=== PATIENT | female | born 1985 | race African-American/Black ===

== ENCOUNTER 2016-12-31 23:55 | Emergency (ER) | payer MEDICAID ==
[2017-01-01] MEDS ORDERED: NORMAL SALINE 1000 ML 1,000 ML IV ONE (02:00)
--- NOTE | 2017-01-01 02:01 | ER Document Report ---
ED General - General Chief Complaint: L leg numbness, Lightheadedness Stated Complaint: LIGHT HEADED,FOOT NUMBNESS Notes: Patient is a 31-year-old female that comes emergency department with 2 stated complaints. She states her first complaint is that her left lower leg over the frontal leg had a tingling and puffy sensation that started while she was walking/working earlier, she states shortly after that she had a lightheaded feeling and felt unsteady on her feet, she denies passing out, she denies nausea , chest pain, shortness of breath. She denies any fever or swelling. She denies any daily medications or known medical problems. TRAVEL OUTSIDE OF THE [place] IN LAST 30 DAYS: No - Related Data Allergies/Adverse Reactions: No Known Allergies Allergy (Verified 05/02/15 20:10) Past Medical History - General Information source: Patient - Social History Smoking Status: Never Smoker Drug Abuse: None Lives with: Family Family History: Reviewed & Not Pertinent, DM - Past Medical History Cardiac Medical History: Denies: Hx Coronary Artery Disease, Hx Heart Attack, Hx Hypertension Pulmonary Medical History: Denies: Hx Asthma, Hx Bronchitis, Hx COPD, Hx Pneumonia Neurological Medical History: Denies: Hx Cerebrovascular Accident, Hx Seizures Renal/ Medical History: Denies: Hx Peritoneal Dialysis Musculoskeltal Medical History: Denies Hx Arthritis Past Surgical History: Reports: Hx Tonsillectomy - Immunizations Hx Diphtheria, Pertussis, Tetanus Vaccination: Yes Hx Pneumococcal Vaccination: 07/02/14 Review of Systems - Review of Systems Constitutional: See HPI EENT: No symptoms reported Cardiovascular: See HPI Respiratory: No symptoms reported Gastrointestinal: No symptoms reported Genitourinary: No symptoms reported Female Genitourinary: No symptoms reported Musculoskeletal: See HPI Skin: No symptoms reported Hematologic/Lymphatic: No symptoms reported Neurological/Psychological: See HPI Physical Exam - Vital signs Vitals: Temp Pulse Resp BP Pulse Ox 98.0 F 74 16 137/87 H 100 01/01/17 00:11 01/01/17 00:11 01/01/17 00:11 01/01/17 00:11 01/01/17 00:11 Interpretation: Normal - General General appearance: Appears well, Alert In distress: None - Alert and well-appearing - HEENT Head: Normocephalic, Atraumatic Eyes: Normal Pupils: PERRL - Respiratory Respiratory status: No respiratory distress Chest status: Nontender Breath sounds: Normal Chest palpation: Normal - Cardiovascular Rhythm: Regular Heart sounds: Normal auscultation Murmur: No - Abdominal Inspection: Normal Distension: No distension Bowel sounds: Normal Tenderness: Nontender Organomegaly: No organomegaly - Back Back: Normal, Nontender - Extremities General upper extremity: Normal inspection, Nontender, Normal color, Normal ROM , Normal temperature General lower extremity: Normal inspection, Nontender - I do not appreciate any swelling, tenderness, erythema, or painful palpation over the entire leg bilaterally. Normal distal neurovascular exam., Normal strength, Normal temperature. No: Joo's sign - Neurological Neuro grossly intact: Yes Cognition: Normal Orientation: AAOx4 [place] Coma Scale Eye Opening: Spontaneous Seng Coma Scale Verbal: Oriented [place] Coma Scale Motor: Obeys Commands [place] Coma Scale Total: 15 Speech: Normal Motor strength normal: LUE, RUE, LLE, RLE Sensory: Normal - Psychological Associated symptoms: Normal affect, Normal mood - Skin Skin Temperature: Warm Skin Moisture: Dry Skin Color: Normal Course - Re-evaluation Re-evalutation: Patient alert, well appearing, has dry mucous membranes, has a completely normal lower extremity and neurological examination, unremarkable vital signs. Patient stating she currently feels a little bit lightheaded but otherwise has no complaints. CBC, chemistry unremarkable, hCG negative. Patient given IV fluids, afterwards patient states she feels much better, has no complaints. Vague presentation, well-appearing patient, nonspecific workup. Patient discharged follow-up with primary care, discussed return precautions including passing out, swelling of the lower extremity, etc. Patient states understanding and agreement. - Vital Signs Vital signs: Temp Pulse Resp BP Pulse Ox 97.7 F 68 14 125/85 96 01/01/17 03:10 01/01/17 03:10 01/01/17 03:10 01/01/17 03:10 01/01/17 03:10 - Laboratory Result Diagrams: 01/01/17 02:21 01/01/17 02:21 Laboratory results interpreted by me: 01/01/17 02:21 RBC 3.54 L Hgb 10.7 L Hct 31.4 L Discharge - Discharge Clinical Impression: Lightheaded, Leg paresthesia Condition: Stable Disposition: HOME, SELF-CARE Additional Instructions: No abnormality is seen on your workup and examination other than evidence of dehydration. Continue to rehydrate, rest, follow-up with primary care. Return to the emergency department for any returned or new concerning symptoms. Forms: Return to Work Referrals: LUKAS HERRERA NP [Primary Care Provider] - Follow up as needed
[2017-01-01 02:31] LABS: ABSOLUTE EOSINOPHILS # (AUTO) 0.2 10^3/uL (0.0-0.6); ABSOLUTE LYMPHOCYTES (AUTO) 1.9 10^3/uL (0.5-4.7); ABSOLUTE MONOCYTES (AUTO) 0.5 10^3/uL (0.1-1.4); BASOPHILS % (AUTO) 0.4 % (0-2); EOSINOPHILS % (AUTO) 3.3 % (0-6); HEMATOCRIT 31.4 % (36.0-47.0); HEMOGLOBIN 10.7 g/dL (12.0-15.5); HGB HCT DIFFERENCE 0.7; MEAN CORPUSCULAR HEMOGLOBIN 30.2 pg (27.0-33.4); MEAN CORPUSCULAR VOLUME 89 fl (80-97); MONOCYTES % (AUTO) 9.1 % (3-13); RED BLOOD COUNT 3.54 10^6/uL (3.72-5.28); RED CELL DISTRIBUTION WIDTH 13.2 % (11.5-14.0); SEGMENTED NEUTROPHILS % (AUTO) 53.2 % (42-78); WHITE BLOOD COUNT 5.6 10^3/uL (4.0-10.5)
[2017-01-01 02:45] LABS: ANION GAP 10 (5-19); BLOOD UREA NITROGEN 17 mg/dL (7-20); CALCIUM 9.2 mg/dL (8.4-10.2); CARBON DIOXIDE 26 mmol/L (22-30); CHLORIDE 106 mmol/L (98-107); CREATININE RESULT 0.64 mg/dL (0.52-1.25); GLUCOSE 90 mg/dL (75-110); SODIUM 142.4 mmol/L (137-145)
[2017-01-01 03:11] VITALS: BP 125/85
== END 2017-01-01 03:11 | disposition home or self-care (01) ==
LOC: ER 23:55
DX: R20.0 Anesthesia of skin (principal)
CPT/HCPCS: 99284; 36415; 84703; 85025; 80048; J7030

== ENCOUNTER 2017-09-12 15:33 | Emergency (ER) | payer BC ==
--- NOTE | 2017-09-12 15:45 | ER Document Report ---
ED General - General Chief Complaint: Cough Stated Complaint: COLD SYMPTOMS Time Seen by Provider: 09/12/17 15:44 Mode of Arrival: Ambulatory Information source: Patient Notes: Patient is a 32 year old female who presents with right upper back pain with associated nausea that started earlier this moring. She states since then the pain has improved after taking tylenol and she is feeling better. She also endorses a "burning sensation" across her chest that is intermittent. She feels this symptoms are due to her body "reacting after having a dream that my son this morning." She states initially she was panicking and this is when her symptoms started. She is now feeling better and her symptoms have all improved. She reports she did take her temperature and it was 100.4F but patient was afebrile in triage. She denies any cough, sore throat, neck pain/stiffness, headache, SOB, abdominal pain, vomiting or diarrhea. Otherwise she is doing well. TRAVEL OUTSIDE OF THE [place] IN LAST 30 DAYS: No - Related Data Allergies/Adverse Reactions: No Known Allergies Allergy (Verified 09/12/17 15:34) Past Medical History - General Information source: Patient - Social History Smoking Status: Unknown if Ever Smoked Family History: Reviewed & Not Pertinent, DM - Past Medical History Cardiac Medical History: Denies: Hx Coronary Artery Disease, Hx Heart Attack, Hx Hypertension Pulmonary Medical History: Denies: Hx Asthma, Hx Bronchitis, Hx COPD, Hx Pneumonia Neurological Medical History: Denies: Hx Cerebrovascular Accident, Hx Seizures Renal/ Medical History: Denies: Hx Peritoneal Dialysis Musculoskeltal Medical History: Denies Hx Arthritis Past Surgical History: Reports: Hx Tonsillectomy - Immunizations Hx Diphtheria, Pertussis, Tetanus Vaccination: Yes Hx Pneumococcal Vaccination: 07/02/14 Review of Systems - Review of Systems Constitutional: See HPI EENT: See HPI Cardiovascular: No symptoms reported Respiratory: See HPI Gastrointestinal: No symptoms reported Genitourinary: No symptoms reported Female Genitourinary: No symptoms reported Musculoskeletal: No symptoms reported Skin: No symptoms reported Hematologic/Lymphatic: No symptoms reported Neurological/Psychological: No symptoms reported Physical Exam - Vital signs Vitals: Temp Pulse Resp BP Pulse Ox 98.6 F 73 16 132/79 H 99 09/12/17 15:38 09/12/17 15:38 09/12/17 15:38 09/12/17 15:38 09/12/17 15:38 - Notes Notes: PHYSICAL EXAM: CONSTITUTIONAL: Alert and oriented, well-appearing and in no acute distress. Sitting upright on exam bed, speaking in full sentences without difficulty. HENT: Normocephalic, atraumatic. Ear canals without erythema or foreign body, TMs pearly rosado with good bony landmarks. Nares clear without erythema, septal hematoma or deviation, airway patent. Oropharynx clear without erythema, tonsilar exudate or malocclusion. Trachea midline. Uvula midline. Moist mucous membranes. EYES: Pupils equal round and reactive to light, EOM intact. Sclera anicteric, conjunctiva are normal. No entrapment. NECK: supple without lymphadenopathy. No midline tenderness or paraspinous muscle spasms. No step-offs or deformities. ROM intact. HEART: Regular rate and rhythm without murmurs. LUNGS: CTAB and equal. No wheezes, rales or rhonchi. GI: Normactive bowel sounds. Nontender, non-distended. No organomegaly. no CVAT. Negative Balderas sign, no McBurney's point tenderness. No rebound or guarding. BACK: no midline tenderness, TTP to rhomboids and latt dorsi beneath right scapula with muscle spasms, no paraspinous spasm, 5+/5 strengths, DTRs 2+, SLR - . EXTREMITIES: Normal range of motion, no pitting edema. No cyanosis. Cap Refill < 3 seconds. NEURO: Cranial nerves grossly intact. Normal sensory/motor exams. PSYCH: Normal mood, normal affect. SKIN: Warm and dry. Normal turgor. No rashes or lesions noted. Course - Re-evaluation Re-evalutation: 09/12/17 15:45 Patient seen and examined. Non-toxic in appearance, no respiratory distress, hemodynamically stable, afebrile. Speaking in full sentences without difficulty. Lungs CTAB. Denies any chest pain/SOB at this time. Exam consistent with muscle spasms. Did obtain flu test which was negative. Low suspicion at this time for ACS, PE, pneumonia, meningitis, sepsis, intra-abdominal infection or any other emergent condition at this time. Discussed this with patient and will give script for muscle relaxer. At this time, will discharge with return precautions and follow-up recommendations. Verbal discharge instructions given at the bedside and opportunity for questions given. Medication warnings reviewed. Patient is in agreement with this plan and has verbalized understanding of return precautions and the need for primary care follow-up in the next 24-72 hours. - Vital Signs Vital signs: Temp Pulse Resp BP Pulse Ox 98.6 F 73 16 132/79 H 99 09/12/17 15:38 09/12/17 15:38 09/12/17 15:38 09/12/17 15:38 09/12/17 15:38 Discharge - Discharge Clinical Impression: Spasm of thoracic back muscle Condition: Stable Disposition: HOME, SELF-CARE Instructions: Myalagia (Muscle Pain) (OM), Muscle Relaxers (OM) Additional Instructions: Follow-Up Care Although no definite follow-up visit has been scheduled for you, you should return if there is unexpected worsening or a significant change in your symptoms. Prescriptions: Methocarbamol [Robaxin 500 mg Tablet] 500 mg PO TID #20 tablet Forms: Elevated Blood Pressure, Return to Work
[2017-09-12 17:05] VITALS: BP 139/85
== END 2017-09-12 17:04 | disposition home or self-care (01) ==
LOC: ER 15:33
DX: M62.830 Muscle spasm of back (principal); M54.89 Other dorsalgia; R11.0 Nausea; R20.8 Other disturbances of skin sensation
CPT/HCPCS: 87804; 99283

== ENCOUNTER → 2018-04-17 | Outpatient (CLI) | payer BC ==
--- NOTE | 2018-04-17 14:36 | WOMENS IMAGING REPORT ---
EXAM DESCRIPTION: U/S BREAST UNILAT LIMITED; EMPLOYEE COMPLETED DATE/TIME: 04/17/2018 2:09 pm REASON FOR STUDY: MASTODYNIA N64.4 MASTODYNIA COMPARISON: None. TECHNIQUE: Real-time and static grayscale imaging performed of the left breast targeted to the area of clinical/mammographic concern. Selected color Doppler images recorded. LIMITATIONS: None. FINDINGS: MASS: No mass identified. Normal glandular tissue. OTHER: No other significant finding. IMPRESSION: No suspicious findings detected by ultrasound. BIRAD: 1 Negative. RECOMMENDATION: RECOMMENDED FOLLOW-UP: Follow-up as clinically indicated. COMMENT: The [employer] (ACR) has developed recommendations for screening MRI of the breasts in certain patient populations, to be used in conjunction with mammography. Breast MRI s urveillance may be appropriate for women with more than 20% lifetime risk of developing breast cancer as determined by genetic testing, significant family history of the disease, or history of mantle r adiation for Hodgkins Disease. ACR Practice Guidelines 2008. TECHNICAL DOCUMENTATION: JOB ID: [id number] [employer]- All Rights Reserved Reading location - IP/workstation name: [facility]
--- NOTE | 2018-04-17 14:36 | WOMENS IMAGING REPORT ---
EXAM DESCRIPTION: U/S BREAST UNILAT LIMITED; EMPLOYEE COMPLETED DATE/TIME: 04/17/2018 2:09 pm REASON FOR STUDY: MASTODYNIA N64.4 MASTODYNIA COMPARISON: None. TECHNIQUE: Real-time and static grayscale imaging performed of the left breast targeted to the area of clinical/mammographic concern. Selected color Doppler images recorded. LIMITATIONS: None. FINDINGS: MASS: No mass identified. Normal glandular tissue. OTHER: No other significant finding. IMPRESSION: No suspicious findings detected by ultrasound. BIRAD: 1 Negative. RECOMMENDATION: RECOMMENDED FOLLOW-UP: Follow-up as clinically indicated. COMMENT: The [employer] (ACR) has developed recommendations for screening MRI of the breasts in certain patient populations, to be used in conjunction with mammography. Breast MRI s urveillance may be appropriate for women with more than 20% lifetime risk of developing breast cancer as determined by genetic testing, significant family history of the disease, or history of mantle r adiation for Hodgkins Disease. ACR Practice Guidelines 2008. TECHNICAL DOCUMENTATION: JOB ID: [id number] [employer]- All Rights Reserved Reading location - IP/workstation name: [email or web address]
== END ==
LOC: WI 13:25
PROVIDERS: ATTEND Family Medicine
DX: N64.4 Mastodynia (principal)
CPT/HCPCS: 76642

== ENCOUNTER → 2020-06-17 | Outpatient (CLI) | payer BC ==
[2020-06-17 13:32] VITALS: BP 139/94
--- NOTE | 2020-06-17 13:32 | ER RDC ASSESSMENT REPORT ---
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 - Symptoms Subjective Fever(Finley feverish): No Chills: No Muscule Aches: No Runny Nose: Yes Sore Throat: Yes Cough (New or worsening chronic cough): Yes Shortness of breath: No Nausea or Vomiting: No Headache: No Abdominal Pain: No Diarrhea(3 or more loose stools in last 24 hours): No - Do you have any of the following Chronic lung disease: Asthma or emphysema or COPD: No Cystic Fibrosis: No Diabetes: No High Blood Pressure: No Cardiovascular Disease: No Chronic Kidney Disease: No Chronic Liver Disease: No Chronic blood disorder like Sickle Cell Disease: No Weak immune system due to disease or medication: No Neurologic condition that limits movement: No Developmental delay - Moderate to Severe: No Recent (within past 2 weeks) or current : No - Objective Temperature: 97.8 F Pulse Rate: 73 Respiratory Rate: 18 Blood Pressure: 139/94 O2 Sat by Pulse Oximetry: 99 Objective: Given above, testing performed: flu, strep, covid Disposition: Home; Selfcare General - General Stated Complaint: congestion, fatigue Mode of Arrival: Ambulatory Information source: Patient - HPI Notes: 34-year-old female presents to [facility] clinic for COVID-19 testing. Patient is employed over [employer] on the second floor. She denies any known contact with COVID positive individual. Onset of symptoms 06/14/2020. She is reporting fatigue, congestion, sore throat, runny nose, and intermittent cough. Denies any fever, chills, myalgia, shortness of breath, nausea or vomiting, headache abdominal pain or diarrhea. - Related Data Allergies/Adverse Reactions: No Known Allergies Allergy (Verified 09/12/17 15:34) Past Medical History - General Information source: Patient - Social History Smoking Status: Current Every Day Smoker Cigarette use (# per day): Yes - 5 Family History: Reviewed & Not Pertinent, DM - Past Medical History Cardiac Medical History: Reports: None Denies: Hx Coronary Artery Disease, Hx Heart Attack, Hx Hypertension Pulmonary Medical History: Reports: None Denies: Hx Asthma, Hx Bronchitis, Hx COPD, Hx Pneumonia EENT Medical History: Reports: None Neurological Medical History: Reports: None. Denies: Hx Cerebrovascular Accident, Hx Seizures Endocrine Medical History: Reports: None Renal/ Medical History: Reports: None. Denies: Hx Peritoneal Dialysis Malignancy Medical History: Reports: None GI Medical History: Reports: None Musculoskeletal Medical History: Reports None, Denies Hx Arthritis Skin Medical History: Reports None Psychiatric Medical History: Reports: None Traumatic Medical History: Reports: None Infectious Medical History: Reports: None Past Surgical History: Reports: Hx Tonsillectomy Physical Exam - General General appearance: Appears well, Alert In distress: None Notes: PHYSICAL EXAMINATION: GENERAL: Well-appearing and in no acute distress. HEAD: Atraumatic, normocephalic. EYES: sclera anicteric, conjunctiva are normal. ENT: nares patent. Moist mucous membranes. NECK: Normal range of motion, supple without lymphadenopathy. LUNGS: No increased work of breathing. Lung sounds CTAB and equal. No wheezes rales or rhonchi. HEART: Regular rate and rhythm without murmurs. ABDOMEN: Soft, nontender, normal bowel sounds, no guarding. EXTREMITIES: Normal range of motion, no pitting edema. No cyanosis. NEUROLOGICAL: A&O x 3. Normal speech. PSYCH: Normal mood, normal affect. SKIN: Warm, Dry, normal turgor, no rashes or lesions noted Patient Education/Counseling Counseling/Education: Patient presents with symptoms associated with possible Covid 19 infection. Patient does not have emergency worrying symptoms such as difficulty breathing, shortness of breath, chest pain, pressure, confusion or cyanosis. Patient appears suitable for discharge as vital signs are stable and patient is nontoxic in appearance. Good return precautions have been discussed with patient, patient verbalized understanding and is agreeable with discharge plan of care at this time. Guidance for worsening S/SX: As a person under investigation for Covid 19, the [place] department of Health and Human Services, division of public health advises you to adhere to the following guidance until your test results are reported to you. If your test result is positive, you will receive additional information from your provider and your local health department at that time. Remain at home until you are cleared by the health provider or public health authorities. Keep a log of visitors to your home, notify any visitors to your home of your isolation status. If you plan to move to a new address or leave the county, notify the local health department in your County. Call your doctor or seek care if you have an urgent medical need. Before seeking medical care, call ahead to get instructions from the provider before arriving at the medical office clinic or hospital. Notify them that you are being tested for the virus that causes Covid 19 so that arrangements can be made, as necessary, to prevent transmission to others in the healthcare setting. Next, notify the local health department in your county. If a medical emergency arises and you need to call 911, inform the first responders that you are being tested for the virus that causes Covid 19. Next, notify the local health department in your county. RDC Discharge - Discharge Clinical Impression: Encounter for screening laboratory testing for COVID-19 virus Upper respiratory infection Qualifiers: URI type: unspecified URI Qualified Code(s): J06.9 - Acute upper respiratory infection, unspecified Condition: Good Disposition: Home; Selfcare
[2020-06-17 14:21] LABS: A TYPE INFLUENZA AG NEGATIVE (NEGATIVE); B INFLUENZA AG NEGATIVE (NEGATIVE)
== END ==
LOC: RDC 12:36
PROVIDERS: ATTEND Registered Nurse
DX: J06.9 Acute upper respiratory infection, unspecified (principal); Z20.828 Contact with and (suspected) exposure to other viral communicable diseases; R05 Cough; R09.89 Other specified symptoms and signs involving the circulatory and respiratory systems; J02.9 Acute pharyngitis, unspecified; R53.83 Other fatigue; F17.210 Nicotine dependence, cigarettes, uncomplicated
CPT/HCPCS: 87070; 87880; 87804; U0003; C9803; 87635; 99201; 99211